=== PATIENT | male | born 1995 ===

== ENCOUNTER 2018-05-15 09:11 | Emergency (ER) | payer MEDICAID ==
[2018-05-15 09:21] VITALS: BP 155/85; PULSE 100; RESP 17; TEMP 98.3; O2SAT 96
--- NOTE | 2018-05-15 11:30 | C.PDOC ---
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 Patient denies any nausea/vomiting, fever, chills, chest pain or shortness of breath. No SI/HI. Time Seen by Provider: 05/15/18 09:23 Chief Complaint (Nursing): Substance Abuse History Per: Patient History/Exam Limitations: no limitations Past Medical History Reviewed: Historical Data, Nursing Documentation, Vital Signs Vital Signs: Last Vital Signs Temp 98.3 F 05/15/18 09:19 Pulse 100 H 05/15/18 09:19 Resp 17 05/15/18 09:19 BP 155/85 H 05/15/18 09:19 Pulse Ox 96 05/15/18 13:14 Family History: States: No Known Family Hx - Social History Hx Alcohol Use: Yes Hx Substance Use: Yes (LAST USE LAST NIGHT) - Immunization History Hx Tetanus Toxoid Vaccination: No Hx Influenza Vaccination: No Hx Pneumococcal Vaccination: No Review Of Systems Constitutional: Negative for: Fever, Chills Cardiovascular: Negative for: Chest Pain Respiratory: Negative for: Shortness of Breath Gastrointestinal: Negative for: Vomiting Skin: Negative for: Rash Psych: Negative for: Suicidal ideation Physical Exam - Physical Exam Appears: Non-toxic, No Acute Distress Skin: Normal Color, Warm, Dry, No Rash Head: Atraumatic, Normacephalic Eye(s): bilateral: Normal Inspection, PERRL, EOMI Nose: Normal Oral Mucosa: Moist Lips: Normal Appearing Neck: Normal ROM Cardiovascular: Rhythm Regular, No Murmur Respiratory: Normal Breath Sounds, No Accessory Muscle Use Gastrointestinal/Abdominal: Soft, No Tenderness Extremity: Normal ROM, No Deformity Neurological/Psych: Oriented x3, Normal Speech ED Course And Treatment O2 Sat by Pulse Oximetry: 96 (RA) Pulse Ox Interpretation: Normal Progress Note: No detox beds available. Pt will be discharged for outpatient f.u Medical Decision Making Medical Decision Making: no detox bed avail advise outpt fu. Disposition - Disposition Referrals: [facility] [Outside] [facility] [Outside] Disposition: HOME/ ROUTINE Disposition Time: 02:00 Condition: STABLE Additional Instructions: please follow up with your doctor/clinic. please call for detox bed. Instructions: Drug Abuse and Drug Addiction (DC) Forms: [employer] (Estonian) - Clinical Impression Clinical Impression: Drug abuse - Scribe Statement The provider has reviewed the documentation as recorded by the Scribe (Taurus Simpson) All medical record entries made by the Scribe were at my direction and personally dictated by me. I have reviewed the chart and agree that the record accurately reflects my personal performance of the history, physical exam, medical decision making, and the department course for this patient. I have also personally directed, reviewed, and agree with the discharge instructions and disposition.
== END 2018-05-15 10:16 | disposition home or self-care (01) ==
LOC: C.ER 09:11
DX: F19.10 Other psychoactive substance abuse, uncomplicated (principal)